=== PATIENT | male | born 1950 | race Two or more races ===

== ENCOUNTER 2018-04-21 11:04 | Inpatient (IN) | payer MEDICARE, MEDICAID ==
[~2018-04-21] VITALS: Ht 175.3 cm; Wt 68.1 kg
--- NOTE | 2018-04-21 11:39 | NUR ---
PT TO X RAY NOW
[2018-04-21 12:08] LABS: BASOPHILS # (AUTO) 0.02 x10^3/uL (0-0.1); BASOPHILS % (AUTO) 0 % (0-1); EOSINOPHILS # (AUTO) 0.05 x10^3/uL (0-0.4); EOSINOPHILS % (AUTO) 1 % (1-7); LYMPHOCYTES # (AUTO) 1.35 x10^3/uL (1-3.4); LYMPHOCYTES % (AUTO) 22 % (22-44); MD NO; MEAN CORPUSCULAR HEMOGLOBIN 31.4 pg (27.5-34.5); MEAN CORPUSCULAR HGB CONC 33.9 g/dL (33.2-36.2); MEAN CORPUSCULAR VOLUME 92.5 fL (81-97); MEAN PLATELET VOLUME 8.3 fL (7.4-10.4); MONOCYTES # (AUTO) 0.55 x10^3/uL (0.2-0.8); MONOCYTES % (AUTO) 9 % (2-9); NEUTROPHILS # (AUTO) 4.23 x10^3/uL (1.8-6.8); NEUTROPHILS % (AUTO) 68 % (42-75); PLATELET COUNT 273 x10^3/uL (130-400); RED BLOOD COUNT 5.27 x10^6/uL (4.38-5.82); RED CELL DISTRIBUTION WIDTH 12.9 % (9.4-14.8)
[2018-04-21 12:21] LABS: ALANINE AMINOTRANSFERASE 32 U/L (12-78); ANION GAP 9 mmol/L (5-15); CALCIUM 9.8 mg/dL (8.5-10.1); CHLORIDE 97 mmol/L (98-107)
[2018-04-21 12:28] LABS: ALKALINE PHOSPHATASE 184 U/L (45-117); BILIRUBIN,TOTAL 0.9 mg/dL (0.2-1.0); TOTAL PROTEIN 8.4 g/dL (6.4-8.2)
--- NOTE | 2018-04-21 12:34 | NUR ---
lab called for critical values. blood glucose of 577. md shell, Addendum: 04/21/18 at 1235 by EVI made aware.
[2018-04-21 12:59] LABS: ACETONE, SERUM Negative (Negative)
[2018-04-21] MEDS ORDERED: INSULIN LISPRO 100 UNITS/ML, PEN ONE ×2 (12:59→13:00)
[2018-04-21] MEDS ORDERED: SODIUM CHLORIDE 0.9% 1,000ML IVBOLUS ONE (13:00)
[2018-04-21] MEDS ORDERED: INSULIN REGULAR 100 UNITS/ML, 3ML VIAL IV ONE (13:00)
[2018-04-21 13:06] LABS: MICROSCOPIC NOT IND
[2018-04-21 13:11] LABS: CULTURE INDICATED? NO
[2018-04-21] MEDS ORDERED: SODIUM CHLORIDE 0.9% 1,000 ML IV SCH (13:20)
[2018-04-21] MEDS ORDERED: GABAPENTIN 300 MG CAPSULE PO PRN (13:30)
[2018-04-21] MEDS ORDERED: LABETALOL 5MG/ML, 20ML IVPush PRN (13:30)
[2018-04-21] MEDS ORDERED: BISACODYL 10 MG SUPP PR PRN (13:30)
[2018-04-21] MEDS ORDERED: DEXTROSE 4 GM TAB.CHEW PO PRN (13:30)
[2018-04-21] MEDS ORDERED: POLYETHYLENE GLYCOL 17 GM PACKET PO PRN (13:30)
[2018-04-21] MEDS ORDERED: DEXTROSE 50%, 50ML SYRINGE IVPush PRN (13:30)
[2018-04-21] MEDS ORDERED: ACETAMINOPHEN 325 MG TABLET PO PRN (13:30)
[2018-04-21] MEDS ORDERED: PINK LADY ENEMA 490 ML BOTTLE PR PRN (13:30)
[2018-04-21] MEDS ORDERED: KETOROLAC 30 MG/1 ML IVPush ONE (13:30)
[2018-04-21] MEDS ORDERED: GLUCAGON 1 MG IM PRN (13:30)
[2018-04-21] MEDS ORDERED: hydrALAzine 20 MG/ML, 1ML IVPush PRN (13:30)
[2018-04-21] MEDS ORDERED: ONDANSETRON ODT 4 MG PO PRN (13:30)
[2018-04-21 14:33] VITALS: BP 158/82
[2018-04-21 15:04] LABS: HEMOGLOBIN A1C 12.6 % (4.2-6.3)
[2018-04-21] MEDS: HEPARIN 5,000 UNITS/ML, 1ML SQ SCH (16:27)
[2018-04-21] MEDS: INSULIN LISPRO 100 UNITS/ML, PEN SQ-INSULIN SCH ×2 (16:54→20:57)
[2018-04-21 19:10] VITALS: BP 156/85
[2018-04-21] MEDS: SODIUM CHLORIDE FLUSH 10ML SYR IVF SCH (21:00)
[2018-04-22 01:10] VITALS: BP 153/75
[2018-04-22] MEDS: HEPARIN 5,000 UNITS/ML, 1ML SQ SCH ×2 (01:10→08:15)
[2018-04-22 05:22] LABS: ANION GAP 8 mmol/L (5-15); CALCIUM 8.9 mg/dL (8.5-10.1); CHLORIDE 104 mmol/L (98-107); CREATININE 0.99 mg/dL (0.7-1.3)
[2018-04-22] MEDS: INSULIN GLARGINE 100 UNITS/ML, PEN SQ-INSULIN SCH ×2 (06:30→08:14)
[2018-04-22 07:45] VITALS: BP 176/85
[2018-04-22] MEDS: INSULIN LISPRO 100 UNITS/ML, PEN SQ-INSULIN SCH ×2 (08:14→11:41)
[2018-04-22] MEDS: SENNA/DOCUSATE TABLET PO SCH ×2 (08:15→08:45)
[2018-04-22] MEDS: SODIUM CHLORIDE FLUSH 10ML SYR IVF SCH (08:15)
[2018-04-22] MEDS ORDERED: AMLODIPINE 5 MG TABLET PO SCH (09:00)
[2018-04-22 09:57] VITALS: BP 154/67
[2018-04-22] MEDS ORDERED: INSU100I11 SQ-INSULIN (13:33)
[2018-04-22] MEDS ORDERED: INSU100I13 SQ-INSULIN (13:33)
[2018-04-22] MEDS ORDERED: AMLO-150 PO (13:33)
[2018-04-22] MEDS ORDERED: METF500S5 PO (13:33)
[2018-04-22 14:00] VITALS: BP 148/67
== END 2018-04-22 14:35 | disposition home or self-care (01) | DRG 552 ==
LOC: ED 13:12 → SUATTDRO 13:17 → 4NOR 13:17 → ED 14:04 → 4NOR 14:28
PROVIDERS: ADMIT Internal Medicine; ATTEND Internal Medicine
DX: M54.41 Lumbago with sciatica, right side (principal); I10 Essential (primary) hypertension; E11.65 Type 2 diabetes mellitus with hyperglycemia; K59.00 Constipation, unspecified; Z79.4 Long term (current) use of insulin
CPT/HCPCS: 36415; 72110; 74021; 80048; 80053; 81003; 82010; 82962; 83036; 85025; 96360; 96372; 99285; G0378; J1644; J0360; J1815; J7030

== ENCOUNTER 2018-11-23 14:21 | Outpatient (CLI) | payer MEDICARE, MEDICAID ==
[~2018-11-23 14:21] MED LIST: AMLO-150 PO; INSU100I11 SQ-INSULIN; INSU100I13 SQ-INSULIN; METF500S5 PO
== END 2018-11-23 23:59 | disposition home or self-care (01) ==
LOC: CVU 14:21
PROVIDERS: ATTEND Physician Assistant
DX: M79.661 Pain in right lower leg (principal); I10 Essential (primary) hypertension; E11.9 Type 2 diabetes mellitus without complications; E78.5 Hyperlipidemia, unspecified
CPT/HCPCS: 93922; 93925